=== PATIENT | male | born 1960 | race Caucasian/White ===

== ENCOUNTER 2022-02-23 09:22 | Day surgery (SDC) | payer OTHER, SELFPAY ==
[2022-02-23] VITALS (12 sets, daily range): BP systolic 75–130; BP diastolic 48–82; PULSE 59–79; RESP 16–18; TEMP 36.1–37.1; O2SAT 97–100; BMI 26.5
[2022-02-23] MEDS: CEFAZOLIN 2 GM INJ IVP (09:08)
[2022-02-23] MEDS: LACTATED RINGERS 1000 ML 1,000 ML 100 ML IV ×2 (10:30→11:36)
[2022-02-23] MEDS: ETHYL CHLORIDE 116 ML SPRAY 1 APPLIC TOPICAL (10:40)
--- NOTE | 2022-02-23 12:21 | P.ORPRC_ITS ---
Procedure Note Procedure: SURGEON: Jer Mi MD [employer] MECH[employer]IC: WANDA Thakur PREOPERATIVE DIAGNOSIS: Right knee medial and lateral meniscus tear POSTOPERATIVE DIAGNOSIS: Right knee medial and lateral meniscus tear NAME OF OPERATION: Right knee arthroscopic partial medial and lateral meniscectomy ANESTHESIA: Spinal ESTIMATED BLOOD LOSS: 0 mL COMPLICATIONS: None SPECIMENS: None DRAINS: None PREOPERATIVE ANTIBIOTICS: Ancef 2 gram INDICATIONS: The patient is a 61-year-old male with a history of right knee m edial pain. MRI scan is consistent with a medial and lateral meniscus tear. Despite appropriate nonoperative management, including activity modification, antiinflammatories, [id number] pain medication, bracing, physical therapy, and injections they continue to have pain and disability. Operative intervention was offered. The risks, benefits and expected outcomes were discussed in detail. These included but were not limited to: Infection, bleeding, injury to blood vessel or nerve, venous thromboembolism. All questions were answered to their satisfaction. PROCEDURE: Spinal anesthesia was administered. The patient was placed supine on the operating room table. The right lower extremity was prepped and draped in the usual sterile fashion. The limb was exsanguinated with the Quinton bandage. The pneumatic tourniquet was inflated to 300 mmHg. A standard anterolateral portal was established. The arthroscope was introduced. The working portal was established anteromedially. Diagnostic arthroscopy was performed with findings as follows: The suprapatellar pouch is normal. Articular surface on the patella is normal. Articular surface on the trochlea is normal. The medial gutter is normal. The medial compartment shows normal articular cartilage on the medial femoral condyle and medial tibial plateau. The medial meniscus has a complex degenerative tear, primarily consisting of a radial tear at the junction of the midbody and posterior horn with horizontal cleavage tearing of the undersurface of the midbody and posterior horn. The notch shows the ACL to be intact. The lateral compartment shows a small, focal area of grade 3 change on the central, weight-bearing portion of the lateral femoral condyle, normal articular cartilage on the lateral tibial plateau. The lateral meniscus has a complex degenerative tear consisting of a vertical longitudinal tear of the posterior horn with undersurface horizontal cleavage tearing. The lateral gutter is normal. The posterior horn and midbody of the medial meniscus was debrided to a stable base using a combination of baskets and shaver through both portals. Likewise, the posterior horn, midbody into anterior horn of the lateral meniscus was debrided with a shaver, taken to a stable base through both portals. Arthroscopic instruments were removed, the portal sites were Steri-Stripped closed, the knee was infiltrated with 30 mL of 0.25% Marcaine without epinephrine. A dry dressing was applied, the tourniquet was released. Sponge and needle counts were correct x 2. The patient tolerated the procedure well. There were no apparent complications. They were carefully transferred to the hospital bed and taken to the postanesthesia care unit in satisfactory condition. PLAN: The patient will be discharged to home. They may weightbear as tolerates. Range of motion will be unrestricted. They will follow up in the office next week for a wound check.
--- NOTE | 2022-02-23 12:33 | W.ANESCHARGE ---
Anesthesia Charges Start Date/Time Anesthesia Start Date: 02/23/22 Anesthesia Start Time: 11:36 Stop Date/Time Anesthesia Stop Date: 02/23/22 Anesthesia Stop Time: 12:26 Summary Emergency: No
--- NOTE | 2022-02-23 13:03 | W.ANESCHARGE ---
Anesthesia Charges Start Date/Time Anesthesia Start Date: 02/23/22 Anesthesia Start Time: 11:36 Stop Date/Time Anesthesia Stop Date: 02/23/22 Anesthesia Stop Time: 12:26 Summary Emergency: No
[2022-02-23] MEDS: LACTATED RINGERS 1000 ML 1,000 ML 200 ML IV (13:58)
--- NOTE | 2022-03-07 16:06 | SUR.PREOP ---
This nurse closed the chart due to admitting RN out for extended time. Incomplete documentation. End time, preop, determined by into OR time.
--- NOTE | 2022-03-07 16:08 | SUR.PREOP ---
This nurse closing the chart due to preop admitting RN incomplete charting and out for extended period. End time of preop determined by patient into OR time.
== END 2022-02-23 15:35 | disposition home or self-care (01) ==
PROVIDERS: PCP Family Medicine; Visit Provider Orthopaedic Surgery
PROC: (CPT 29870; principal; 2022-02-23 11:30)
DX: M23.251 Derangement of posterior horn of lateral meniscus due to old tear or injury, right knee (principal); M23.221 Derangement of posterior horn of medial meniscus due to old tear or injury, right knee
CPT/HCPCS: 29880; 1400; 97116; 97161; J0690; J1100; J2250; J2400; J2405; J2704; J3010; J7120

== ENCOUNTER 2022-10-03 08:13 | Outpatient (CLI) | payer OTHER, SELFPAY ==
[2022-10-03 14:18] LABS: Chloride* 106 mmol/L (96-114); Potassium* 4.2 mmol/L (3.6-5.1); Sodium* 138 mmol/L (135-149)
[2022-10-03 14:21] LABS: Blood Urea Nitrogen* 23 mg/dL (7-30); Carbon Dioxide* 27 mmol/L (20-32); Cholesterol* 194 mg/dL (90-199); Creatinine* 1.2 mg/dL (0.5-1.5); Estimated Glomerular Filt Rate 69 ml/min; Glucose* 96 mg/dL (60-115)
[2022-10-03 14:22] LABS: Calcium* 9.5 mg/dL (8.4-10.6); HDL Cholesterol* 62 mg/dL (>=40); LDL Cholesterol Calculated 109 mg/dL (<100); Triglycerides* 115 mg/dL (40-149)
== END 2022-10-03 08:14 | disposition home or self-care (01) ==
PROVIDERS: PCP Family Medicine; Visit Provider Family Medicine
DX: Z00.00 Encounter for general adult medical examination without abnormal findings (principal); E03.9 Hypothyroidism, unspecified; I10 Essential (primary) hypertension; Z12.5 Encounter for screening for malignant neoplasm of prostate; Z13.6 Encounter for screening for cardiovascular disorders; Z13.0 Encounter for screening for diseases of the blood and blood-forming organs and certain disorders involving the immune mechanism
CPT/HCPCS: 80048; 80061; 84153; 84443

== ENCOUNTER 2023-10-17 09:32 | Outpatient (CLI) | payer OTHER, SELFPAY | END 2023-10-17 09:33 | disposition home or self-care (01) | PROVIDERS: PCP Family Medicine; Visit Provider Family Medicine | DX: I10 Essential (primary) hypertension (principal); E03.9 Hypothyroidism, unspecified | CPT/HCPCS: 80048; 84439; 84443 ==

== ENCOUNTER 2024-10-20 09:41 | Outpatient (CLI) | payer OTHER, SELFPAY | END 2024-10-20 09:42 | disposition home or self-care (01) | PROVIDERS: PCP Family Medicine; Visit Provider Family Medicine | DX: E03.9 Hypothyroidism, unspecified (principal); I10 Essential (primary) hypertension; Z12.5 Encounter for screening for malignant neoplasm of prostate | CPT/HCPCS: 80048; 84443; G0103 ==